=== PATIENT | female | born 1975 | race Caucasian/White ===

== ENCOUNTER 2017-12-27 03:07 | Observation (INO) | payer OTHER ==
[~2017-12-27] VITALS: Ht 154.9 cm; Wt 80.9 kg
[2017-12-27] VITALS (13 sets, daily range): BP systolic 112–123; BP diastolic 75–99; PULSE 70–116; TEMP 36.4–37.3; O2SAT 99–100; Ht 154.9 cm; Wt 80.9 kg
[2017-12-27] MEDS ORDERED: BCPILLS PO (03:33)
[2017-12-27] MEDS ORDERED: KETOROLAC TROMETHAMINE 30 MG/ML VIAL IV STA (04:10)
[2017-12-27] MEDS ORDERED: SODIUM CHLORIDE 0.9% 1000ML 1,000 ML IV ONE ×2 (04:15)
[2017-12-27 04:59] LABS: PTT PATIENT 19.5 SECONDS (21.0-31.0)
[2017-12-27 05:02] LABS: ALBUMIN 3.3 gm/dl (3.4-5.0); CREATININE 0.91 mg/dl (0.60-1.20); HEMATOCRIT 19.8 % (37-47); HEMOGLOBIN 6.6 g/dL (12.0-16.0); MEAN CELL VOLUME 77.6 fL (80-100); MEAN CORPUSCULAR HEMOGLOBIN 25.9 pg (25-34); MEAN CORPUSCULAR HGB CONC 33.3 g/dl (32-36); MEAN PLATELET VOLUME 9.6 fL (7.4-10.4); PLATELET COUNT 288 K/uL (130-400); POTASSIUM 3.9 mmol/L (3.5-5.1); RED CELL DISTRIBUTION WIDTH CV 13.8 % (11.5-14.5); RED CELL DISTRIBUTION WIDTH SD 39.6 fL (36.4-46.3); WHITE BLOOD COUNT 5.99 K/uL (4.8-10.8)
[2017-12-27 05:03] LABS: BASO % 0.3 %; BASO ABS # 0.02 K/uL (0-0.2); EOS % 0.8 %; EOS ABS # 0.05 K/uL (0-0.5); IG# 0.01 K/uL (0.00-0.02); LYMPH % 22.9 %; LYMPH ABS # 1.37 K/uL (1.2-3.4); MONO % 5.5 %; MONO ABS # 0.33 K/uL (0.11-0.59); NEUT % 70.3 %; NEUT ABS # 4.21 K/uL (1.4-6.5)
[2017-12-27 05:10] LABS: TOTAL PROTEIN 6.3 gm/dl (6.4-8.2)
[2017-12-27] MEDS ORDERED: LORAZEPAM 2 MG/ML 1 ML VIAL IV STA (05:21)
[2017-12-27] MEDS ORDERED: ONDANSETRON INJ 2 MG/ML 2 ML VIAL IV STA (05:26)
[2017-12-27] MEDS ORDERED: ESTROGENS, CONJUGATED INJ 25 MG in SYRINGE 0 ML IV ONE (05:30)
--- NOTE | 2017-12-27 06:58 | DIAGNOSTIC IMAGING REPORT ---
TRANSVAG-FEMALE PELVIS HISTORY: Pain Vag bleeding COMPARISON: None. FINDINGS: Uterus: Enlarged fibroid-type uterus. Maximum dimension is 13 cm. Largest fibroid measures approximately 8 x 7 cm. Endometrial stripe: Not identified Right ovary: Not identified Left ovary: -5 Miscellaneous:No pelvic free fluid. IMPRESSION: Enlarged fibroid uterus. The above report was generated using voice recognition software. It may contain grammatical, syntax or spelling errors. Electronically signed by: Erasmo Mixon M.D. 12/27/2017 6:57 AM Dictated Date/Time: 12/27/2017 6:55 AM
[2017-12-27] MEDS ORDERED: LACTATED RINGER'S 1000ML 1,000 ML IV SCH (07:05)
[2017-12-27] MEDS ORDERED: ONDANSETRON INJ 2 MG/ML 2 ML VIAL IV PRN (07:15)
[2017-12-27] MEDS ORDERED: IV FLUIDS COMPLETED PRN (07:15)
--- NOTE | 2017-12-27 07:25 | HISTORY & PHYSICAL EXAMINATION ---
DATE OF ADMISSION: 12/27/2017 HISTORY OF PRESENT ILLNESS: Asiya is a patient from the [place] area who was in town for the [employer] game. She has a long history of heavy abnormal uterine bleeding and is followed by doctors in the [place] area. She states that over the last 2 days things have really increased to the point where she is passing clots. She went to the football game yesterday and every 30 minutes was having to go to the bathroom to change a tampon and pad. She felt lightheaded and shortness of breath, so presented to our Emergency Room. At that time, she was assessed and her hemoglobin was 6.6. The past history on this is that she has had this for at least 2 years and has a known history of fibroids. PAST OBSTETRICAL HISTORY: Includes 2 prior sections. PAST CLINIC BUSINESS MANAGER HISTORY: Includes a LEEP procedure more than 10 years ago. She states she has a normal Pap smear within the last year. PAST MEDICAL HISTORY: She is healthy. PAST SURGICAL HISTORY: x2. MEDICATIONS: She is on a generic control pill at this time. MEDICATION ALLERGIES: None. SOCIAL HISTORY: Nonsmoker, nondrinker. FAMILY HISTORY: Noncontributory. PHYSICAL EXAMINATION: VITAL SIGNS: Stable. She is afebrile. CHEST: Clear. CARDIOVASCULAR: Normal rate and rhythm. ABDOMEN: Benign. No masses. Nontender. No liver or spleen enlargement or hernias palpated. PELVIC: Reveals an enlarged uterus approximately 14 weeks' size, irregular in shape, nontender. There is no blood noticed in the vagina at this time as the patient does note bleeding has decreased since her stay in the ER. IMPRESSION AND PLAN: The patient requires transfusion of at least 2 units of blood. We will bring her into the hospital, admit her for observation. I will start her on IV Premarin. We discussed the risks of DVT with this. We will use intermittent compression stockings and BRADEN hose. Hopefully, we can stabilize the bleeding and have her follow up with her primary event host in [place]. If her bleeding is worsening, clearly we will have to reassess the situation and discuss other potential management options.
[2017-12-27] MEDS: ESTROGENS, CONJUGATED INJ 25 MG in SYRINGE 0 ML IV SCH ×3 (10:05→17:40)
[2017-12-27 17:14] LABS: BASO % 0.3 %; BASO ABS # 0.03 K/uL (0-0.2); EOS % 1.7 %; EOS ABS # 0.15 K/uL (0-0.5); HEMATOCRIT 25.2 % (37-47); HEMOGLOBIN 8.6 g/dL (12.0-16.0); IG# 0.03 K/uL (0.00-0.02); LYMPH % 24.2 %; LYMPH ABS # 2.18 K/uL (1.2-3.4); MEAN CELL VOLUME 78.8 fL (80-100); MEAN CORPUSCULAR HEMOGLOBIN 26.9 pg (25-34); MEAN CORPUSCULAR HGB CONC 34.1 g/dl (32-36); MEAN PLATELET VOLUME 9.6 fL (7.4-10.4); MONO % 6.2 %; MONO ABS # 0.56 K/uL (0.11-0.59); NEUT % 67.3 %; NEUT ABS # 6.04 K/uL (1.4-6.5); PLATELET COUNT 239 K/uL (130-400); RED CELL DISTRIBUTION WIDTH CV 14.1 % (11.5-14.5); RED CELL DISTRIBUTION WIDTH SD 40.6 fL (36.4-46.3); WHITE BLOOD COUNT 8.99 K/uL (4.8-10.8)
--- NOTE | 2017-12-27 17:21 | Discharge Instructions ---
Discharge Instructions Date of Service Dec 27, 2017. Admission Reason for Admission: Anemia, Leiomyoma, Menorrhagia Discharge Discharge Diagnosis / Problem: Menorrhagia Discharge Goals Goal(s): Continuing SURGICAL ELASTIC KNITTER care Activity Recommendations Activity Limitations: per Instructions/Follow-up section . Instructions / Follow-Up Instructions / Follow-Up ACTIVITY RECOMMENDATIONS: Activity: * During the first week at home, your activity should be similar to that done SPECIAL CARE INSTRUCTIONS: The major discomforts related to surgery have now passed and progressive improvement will occur. The tight uncomfortable feeling in the abdominal, pelvic and back area will gradually fade away. Fatigue may take the longest to disappear; your energy level may take several weeks to return to normal. At times you may become frustrated or impatient over not feeling as well or doing as much as you'd like , but this is a normal reaction to surgery and will pass with time. Temperature: * Any fever above 100.4 degrees F should be reported to our office at . FOLLOW-UP: With your SURGICAL ELASTIC KNITTER Take the Premarin once daily WE WISH YOU A SPEEDY RECOVERY! Current Hospital Diet Patient's current hospital diet: Regular Diet Discharge Diet Recommended Diet: Regular Diet Pending Studies Studies pending at discharge: no Medical Emergencies . Who to Call and When: Medical Emergencies: If at any time you feel your situation is an emergency, please call 911 immediately. . Non-Emergent Contact Non-Emergency issues call your: [employer] . . "Provider Documentation" section prepared by Too Mondragon. .
[2017-12-27] MEDS ORDERED: PRM9 PO (17:23)
[2017-12-27] MEDS ORDERED: ALPRAZOLAM 0.25 MG TAB PO STA (17:36)
--- NOTE | 2017-12-27 23:17 | DISCHARGE SUMMARY ---
Patricia was admitted for observation on the clinical rn manager of 12/27/2017 and discharged later the same day. She had presented with severe menorrhagia, likely related to fibroids. The patient is not a patient known to us. She seeks care in [place] and was visiting for the [employer] football game. The bleeding became so heavy that she felt short of breath and lightheaded and was assessed in the ER. Hemoglobin was 6.6 initially. At this time, she was admitted for observation, and 2 units of blood were given increasing her hemoglobin to 8.6. IV Premarin was started, and compression stockings were initiated to reduce DVT risk. Bleeding stopped soon after IV Premarin. Later in the day, the patient requested to go home, and her bleeding had stopped completely, her hemoglobin was stable, her vitals were stable, and she was not lightheaded. She was discharged home. I discussed taking Premarin 1.25 mg daily and following as soon as she can with her own manager lab. PHYSICAL EXAMINATION: At that time CHEST: Clear. CARDIOVASCULAR: Normal rate and rhythm. PELVIC: Vaginal exam revealed no bleeding. EXTREMITIES: Negative for tenderness. IMPRESSION AND PLAN: Discharge home with severe menorrhagia. Told to follow up with her own manager lab and discuss definitive options for her menorrhagia.
--- NOTE | 2017-12-28 04:29 | EMERGENCY ROOM VISIT NOTE ---
History First contact with patient: 03:54 Chief Complaint: ED VAG BLEEDING Stated Complaint: ANEMIA, LEIOMYOMA, MENORRHAGIA History of Present Illness The patient is a 42 year old female who presents to the Emergency Room with complaints of heavy vaginal bleeding for the past 2 days. The patient states that this initially began like a normal menses for her, however over the past 1 day she has been bleeding through a pad every half hour to 45 minutes. The patient is now lightheaded with walking and feeling racing in her chest. The patient is not having significant pain, only describing this as a mild abdominal cramping. The patient has a history of uterine fibroids and irregular menses. She did recently change her control. Patient has not had fever or chills. She is without chest pain. She is not on blood thinners. She rates her current discomfort a 6/10. Review of Systems More than 10 systems were reviewed and otherwise negative with the exception of history of present illness. Past Medical/Surgical History Medical Problems: (1) Anemia (2) Leiomyoma (3) Menorrhagia Social History Smoking Status: Never Smoker Housing Status: lives with family Current/Historical Medications Scheduled Estrogens, Conjugated (Premarin), 1.25 MG PO QAM Physical Exam Vital Signs Date Time Temp Pulse Resp B/P (MAP) Pulse Ox O2 Delivery O2 Flow Rate FiO2 12/27/17 05:53 122 12/27/17 05:47 117 18 119/77 98 Room Air 12/27/17 03:23 144/85 12/27/17 03:09 36.6 156 22 142/85 100 Room Air Physical Exam VITALS: Vitals are noted on the nurse's note and reviewed by myself. Vital signs with Erasmo and tachycardia GENERAL: Very pale appearing female who is quite anxious on examination. HEAD: Normocephalic atraumatic. MOUTH: Mucous membranes moist. Tonsils are not enlarged. Pharynx without erythema, blood, or exudate. Uvula midline. Airway patent. NECK: Supple without nuchal rigidity. No lymphadenopathy. No thyromegaly. Cervical spine is nontender. HEART: Tachycardic rate with regular rhythm LUNGS: Clear to auscultation bilaterally without wheezes, rales or rhonchi. No retractions or accessory muscle use. ABDOMEN: Positive normal bowel sounds x 4. Soft with very mild abdominal tenderness in the lower abdomen. No distinct point tenderness. No rebound or guarding. MUSCULOSKELETAL: No muscle atrophy, erythema, or edema noted. Full range of motion in all extremities. No tenderness to palpation. Normal gait. Strength 5/5 throughout. NEURO: Patient was alert and oriented to person place and time. CN II through XII grossly intact. No focal neurological deficits. Medical Decision & Procedures ER Provider Diagnostic Interpretation: TRANSVAG-FEMALE PELVIS HISTORY: Pain Vag bleeding COMPARISON: None. FINDINGS: Uterus: Enlarged fibroid-type uterus. Maximum dimension is 13 cm. Largest fibroid measures approximately 8 x 7 cm. Endometrial stripe: Not identified Right ovary: Not identified Left ovary: -5 Miscellaneous:No pelvic free fluid. IMPRESSION: Enlarged fibroid uterus. Laboratory Results 12/27/17 04:35 Test 12/27/17 04:35 12/27/17 05:14 Red Blood Cell Morphology Unremarkable Prothrombin Time 10.8 SECONDS (9.0-12.0) Prothromb Time International Ratio 1.0 (0.9-1.1) Activated Partial Thromboplast Time 19.5 SECONDS (21.0-31.0) Partial Thromboplastin Ratio 0.8 Anion Gap 5.0 mmol/L (3-11) Est Creatinine Clear Calc Drug Dose 79.2 ml/min Estimated GFR () 91.5 Estimated GFR (Non- 78.9 BUN/Creatinine Ratio 14.1 (10-20) Calcium Level 8.0 mg/dl (8.5-10.1) Total Bilirubin 0.2 mg/dl (0.2-1) Aspartate Amino Transf (AST/SGOT) 13 U/L (15-37) Alanine Aminotransferase (ALT/SGPT) 16 U/L (12-78) Alkaline Phosphatase 58 U/L (45-117) Total Protein 6.3 gm/dl (6.4-8.2) Albumin 3.3 gm/dl (3.4-5.0) Globulin 3.0 gm/dl (2.5-4.0) Albumin/Globulin Ratio 1.1 (0.9-2) Lipase 122 U/L (73-393) Urine Color YELLOW Urine Appearance CLOUDY (CLEAR) Urine pH 5.0 (4.5-7.5) Urine Specific [place] 1.020 (1.000-1.030) Urine Protein NEG (NEG) Urine Glucose (UA) NEG (NEG) Urine Ketones NEG (NEG) Urine Occult Blood 3+ (NEG) Urine Nitrite NEG (NEG) Urine Bilirubin NEG (NEG) Urine Urobilinogen NEG (NEG) Urine Leukocyte Esterase TRACE (NEG) Urine WBC (Auto) 1-5 /hpf (0-5) Urine RBC (Auto) 0-4 /hpf (0-4) Urine Hyaline Casts (Auto) 1-5 /lpf (0-5) Urine Epithelial Cells (Auto) >30 /lpf (0-5) Urine Bacteria (Auto) NEG (NEG) Medications Administered Medications (Trade) Dose Ordered Sig/Desiree Route Start Time Stop Time Status Last Admin Dose Admin Sodium Chloride 1,000 ml @ 999 mls/hr Q1H1M ONCE IV 12/27/17 04:15 12/27/17 05:15 DC 12/27/17 04:15 999 MLS/HR Sodium Chloride 1,000 ml @ 999 mls/hr Q1H1M ONCE IV 12/27/17 04:15 12/27/17 05:15 DC 12/27/17 04:15 999 MLS/HR Ketorolac Tromethamine (Toradol Inj) 30 mg NOW STAT IV 12/27/17 04:10 12/27/17 04:12 DC 12/27/17 04:10 30 MG Lorazepam (Ativan Inj) 1 mg NOW STAT IV 12/27/17 05:21 12/27/17 05:22 DC 12/27/17 05:26 1 MG Estrogens Conjugated 25 mg/ Syringe 5 ml @ 1 mls/min NOW ONCE IV 12/27/17 05:30 12/27/17 05:34 DC 12/27/17 06:10 1 MLS/MIN Lactated Ringer's 1,000 ml @ 125 mls/hr Q8H IV 12/27/17 07:05 12/27/17 18:22 DC 12/27/17 11:42 125 MLS/HR ED Course Physical exam and history were performed. Nursing notes, EMR, and Medication List were personally reviewed. Patient appears to have significant vaginal bleeding that is worsened over the past day. The patient is pale and tachycardic. She appears unwell on initial presentation. IV access was established and labs are obtained. The patient was given 2 L of normal saline. She was given IV Toradol She was sent to ultrasound. She was placed on a alarm security or surveillance monitor. The patient's blood work is as above and was reviewed. She does not have a significantly elevated white blood cell count. The patient is markedly anemic with a hemoglobin of 6.6. A second large IV bore was obtained, and consent for blood products was obtained by my attending physician, Dr. sanchez. We did begin transfusion protocol here in the department because of her severe and symptomatic anemia. The patient's remaining blood work is fairly unremarkable. She is not . Her ultrasound shows large fibroids, which may be the etiology of her severe bleeding. . The patient remained in stable but guarded condition throughout her ER stay. I discussed the case with the on-call CROP PULLER, Dr. Mondragon, who agreed to evaluate the patient here in the department. Please see Dr. Mondragon's dictation for further patient course, plan, and disposition. The chart was completed utilizing [employer] Speech Voice Recognition Software. Grammatical errors, random word insertions, pronoun errors, and incomplete sentences are an occasional consequence of this system due to software limitations, ambient noise, and hardware issues. Any formal questions or concerns about the content, text, or information contained within the body of this dictation should be directly addressed to the provider for clarification. . Medical Decision Differential diagnosis: Etiologies such as ectopic , dysfunction uterine bleeding, bleeding dyscrasia, trauma, infection, as well as others were entertained. Impression Primary Impression: Symptomatic anemia Additional Impression: Vaginal bleeding Critical Care I have personally spent greater than 30 minutes of critical care time in the direct management of this patient. This includes bedside care, interpretation of diagnostic studies, and testing, discussion with consultants, patient, and family members, and other required patient management activities. This 30 minutes is in excess of all separately billable procedures. Departure Information Dispostion Still a Patient Condition FAIR Prescriptions Estrogens, Conjugated (PREMARIN) 0.9 Mg Tab 1.25 MG PO QAM, #14 TAB Prov: Linda Mondragon M.D. 12/27/17 Referrals No Doctor, Assigned (PCP) Forms WORK / SCHOOL INSTRUCTIONS, HOME CARE DOCUMENTATION FORM, IMPORTANT VISIT INFORMATION Patient Instructions My [facility] Problem Qualifiers
[2017-12-28] MEDS ORDERED: ESTROGENS, CONJUGATED 0.625 MG TAB PO SCH (08:00)
--- NOTE | 2017-12-29 14:36 | Progress Note ---
Internal Med Progress Note Date of Service: Dec 29, 2017. Provider Documentation: Patient not seen. Last December 27 around 5:45 AM, I was notified by Mr. Oliver Cortez PA-C of the ER of possible medical consultation pending Gynecology service evaluation of patient for admission for vaginal bleeding. I informed my team of potential consultation before my shift as [facility] hospitalist ended at 7 AM, December 27. No notification of official consultation was received by myself or the morning [facility] hospitalist team from Gynecology service until patient's discharge.
== END 2017-12-27 18:15 | disposition home or self-care (01) ==
LOC: C.EDB 03:09 → C.OBG 07:09 → EDBEDREQ 07:12 → ENRESERV 07:42
PROVIDERS: ADMIT Obstetrics & Gynecology; ATTEND Obstetrics & Gynecology
DX: D64.9 Anemia, unspecified (principal); N92.0 Excessive and frequent menstruation with regular cycle